=== PATIENT | female | born 1985 | race Caucasian/White ===

== ENCOUNTER 2019-12-04 05:51 | Emergency (ER) | payer MEDICAID ==
[2019-12-04] MEDS ORDERED: Amoxicillin/Clavulanate K 875-125 MG Tab ONE (06:00)
[2019-12-04 06:14] VITALS: BP 116/79; PULSE 91
[2019-12-04] MEDS ORDERED: cefTRIAXone 1 GM Vial IM ONE (06:19)
--- NOTE | 2019-12-04 14:56 | EDM.PDOC ---
ED HPI GENERAL MEDICAL PROBLEM - General Chief Complaint: ENT Problem Stated Complaint: Jaw pain; sinus pain Time Seen by Provider: 12/04/19 06:15 Source of Information: Reports: Patient History Limitations: Reports: No Limitations - History of Present Illness INITIAL COMMENTS - FREE TEXT/NARRATIVE: This is a 34yo F here for complaints of jaw pain. She states her symptoms started from the sinuses and went to the ears and now she has some jaw pain and tenderness with opening her mouth. She denies any fever or chills or other concerns. She does have a lot of drainage and mucopurulent material that comes out. Onset: Gradual Duration: Day(s): Location: Reports: Head, Face Quality: Reports: Ache Severity: Moderate Associated Symptoms: Reports: Headaches Treatments RO[employer]ER: Reports: Heat Therapy, Other (see below) Other Treatments ROOM SERVICE [employer] SERVER: Netti Pot - Related Data Allergies Allergy/AdvReac Type Severity Reaction Status Date / Time No Known Allergies Allergy Verified 01/23/15 18:39 Home Meds: Home Meds LORazepam [Lorazepam] 0.5 mg PO DAILY PRN 12/04/19 [History] Lisdexamfetamine [Vyvanse] 20 mg PO DAILY PRN 12/04/19 [History] Past Medical History - Past Health History Medical/Surgical History: Denies Medical/Surgical History HEENT History: Reports: Sinusitis Psychiatric History: Reports: ADHD - Past Surgical History HEENT Surgical History: Reports: None GI Surgical History: Reports: Cholecystectomy Social & Family History - Family History Family Medical History: Noncontributory - Tobacco Use Smoking Status *Q: Light Tobacco Smoker Years of Tobacco use: 15 Packs/Tins Daily: 0.5 - Caffeine Use Caffeine Use: Reports: None - Alcohol Use Days Per Week of Alcohol Use: 1 Number of Drinks Per Day: 0 Total Drinks Per Week: 0 - Recreational Drug Use Recreational Drug Use: No ED ROS GENERAL - Review of Systems Review Of Systems: Comprehensive ROS is negative, except as noted in HPI. ED EXAM, GENERAL - Physical Exam Exam: See Below Exam Limited By: No Limitations General Appearance: Alert, WD/WN, No Apparent Distress Eye Exam: Bilateral Eye: EOMI, PERRL Ears: Normal External Exam Nose: Normal Inspection Throat/Mouth: Normal Inspection Head: Atraumatic, Normocephalic Neck: Normal Inspection, Supple, Non-Tender Neurological: Alert, Oriented, CN II-XII Intact Psychiatric: Normal Affect, Normal Mood Skin Exam: Warm, Dry, Intact Course - Vital Signs Last Recorded V/S: Last Vital Signs Temp 37.4 C 12/04/19 06:12 Pulse 91 12/04/19 06:12 Resp 18 12/04/19 06:12 BP 116/79 12/04/19 06:12 Pulse Ox 98 12/04/19 06:12 - Orders/Labs/Meds Meds: Medications Discontinued Medications Generic Name Dose Route Start Last Admin Trade Name Chris PRN Reason Stop Dose Admin Ceftriaxone Sodium 1 gm 12/04/19 06:19 12/04/19 06:35 Rocephin IM 12/04/19 06:20 1 gm ONETIME ONE Administration Departure - Departure Time of Disposition: 07:30 Disposition: Home, Self-Care 01 Condition: Good Clinical Impression: Sinusitis Qualifiers: Sinusitis location: maxillary Chronicity: acute Recurrence: not specified as recurrent Qualified Code(s): J01.00 - Acute maxillary sinusitis, unspecified - Discharge Information Instructions: Amoxicillin; Clavulanic Acid tablets, Ceftriaxone injection, Otitis Media, Adult, [id number] Referrals: PCP,None [Primary Care Provider] - Forms: ED Department Discharge Additional Instructions: Take augmentin 875/125 mg twice daily X 10 days. Take a Probiotic to help prevent antibiotic diarrhea (Flogen). Watch for yeast infections. Follow up with provider if symptoms worsen or do not clear in next 10 days. Sepsis Event Note - Evaluation Sepsis Screening Result: No Definite Risk - Focused Exam Vital Signs: Vital Signs Temp Pulse Resp BP Pulse Ox 12/04/19 06:12 37.4 C 91 18 116/79 98 Date Exam was Performed: 12/04/19 Time Exam was Performed: 14:50 - Problem List & Annotations (1) Sinusitis SNOMED Code(s): 00480132 Code(s): J32.9 - CHRONIC SINUSITIS, UNSPECIFIED Status: Acute Qualifiers: Sinusitis location: maxillary Chronicity: acute Recurrence: not specified as recurrent Qualified Code(s): J01.00 - Acute maxillary sinusitis, unspecified - Problem List Review Problem List Initiated/Reviewed/Updated: Yes - Assessment/Plan Plan: Counseled on antibiotics and side effects. Discussed close monitoring and rtc if symptoms persist or worsen. Counseled on supportive care and therapy. Discussed conservative treatment as well. F/u as directed and as needed.
== END 2019-12-04 06:45 | disposition home or self-care (01) ==
LOC: LB.ED 05:51
DX: J01.00 Acute maxillary sinusitis, unspecified (principal); F90.9 Attention-deficit hyperactivity disorder, unspecified type; F17.210 Nicotine dependence, cigarettes, uncomplicated; Z79.899 Other long term (current) drug therapy
CPT/HCPCS: 96372; 99283; A9270; J0696

== ENCOUNTER 2021-03-23 06:41 | Emergency (ER) | payer MEDICAID ==
[2021-03-23 07:15] VITALS: BP 106/76; PULSE 76
[2021-03-23] MEDS: cefTRIAXone 1 GM Vial IM ONE (07:39)
[2021-03-23] MEDS: Ketorolac 60 MG/2 ML SDV IM ONE (07:41)
--- NOTE | 2021-03-23 16:40 | ER ---
HISTORY OF PRESENT ILLNESS: A 35-year-old lady here with complaints of dental pain and abscess involving the right lower jaw. She was seen yesterday in [place] by someone in the clinic and she was put on penicillin V 500 mg b.i.d. she has only taken 2 doses. She states it is not getting any better and feels like it might be slowly getting worse. The patient has not had any injury to this area. She has seen a dentist a couple of weeks ago and was told that she could have it removed toward the end of the month, the 1 molar on the right lower jaw. The patient also noticed a little bit of puffiness just above the left eye this morning. She states that she has never been allergic to penicillin or amoxicillin. She states that her pain is at a 7/10 or 8/10. OBJECTIVE: GENERAL APPEARANCE: The patient is awake and alert. No respiratory distress. VITAL SIGNS: Reviewed. She is afebrile. HEENT: Examining the patient's face reveals obvious swelling of the right lower jaw. There is no redness involving the skin. Oral exam reveals redness involving the 1st molar on the right lower jaw along both sides of the molar. There is no blister or pustule formation. This area is all quite tender to touch. DIAGNOSIS: Dental pain with abscess. TREATMENT PLAN: We will give the patient Rocephin 1 g IM and Toradol 60 mg IM. I will give her a script for Toradol tablets 1 tablet every 6 to 8 hours, giving 15 tablets. She is not to use any NSAIDs while taking this. She can take Tylenol in between doses of Toradol. As far as the swelling above the eye, the patient is to use Benadryl as needed. She feels it is getting better. She woke up with that this morning. If this happens to get worse for any reason, she is to stop taking the penicillin and come back or call back as needed. The patient does not have a rash anywhere and she is agreeable with the treatment plan. She is to utilize a soft diet, and followup should be with her dentist as needed. Followup here is on a p.r.n. basis. CRS/MODL /[id number]
== END 2021-03-23 08:02 | disposition home or self-care (01) ==
LOC: LB.ED 06:41
DX: K04.7 Periapical abscess without sinus (principal)
CPT/HCPCS: 96372; 99282; J0696; J1885

== ENCOUNTER 2021-12-10 20:20 | Emergency (ER) | payer MEDICAID | END 2021-12-10 21:15 | disposition home or self-care (01) | LOC: LB.ED 20:20 | DX: U07.1 COVID-19 (principal) | CPT/HCPCS: 99283; U0002 ==

== ENCOUNTER 2024-02-16 10:50 | Emergency (ER) | payer MEDICAID ==
[2024-02-16 10:59] VITALS: BP 111/81; PULSE 79
[2024-02-16] MEDS ORDERED: Sodium Chloride 0.9% 10 ML Syringe FLUSH PRN (11:06)
[2024-02-16 11:25] LABS: HEMATOCRIT 40.6 % (37.0-47.0); HEMOGLOBIN 13.5 g/dL (11.5-16.5); MEAN CORPUSCULAR HEMOGLOBIN 31.2 pg (27.0-32.0); MEAN CORPUSCULAR HGB CONC 33.3 g/dL (31.0-35.0); MEAN PLATELET VOLUME 9.1 fL (6.0-10.0); RED BLOOD CELL COUNT 4.33 M/uL (3.80-5.80); RED CELL DISTRIBUTION WIDTH 13.5 % (11.0-16.0); WHITE BLOOD CELL COUNT,WBC 7.3 K/uL (4.0-11.0)
[2024-02-16 11:47] LABS: BUN/CREATININE RATIO 13.6 (6-25); CALCIUM 8.9 mg/dL (8.5-10.1); CARBON DIOXIDE,CO2 23.9 mmol/L (21.0-32.0); CREATININE 0.66 mg/dL (0.55-1.02); EST CRCL DRUG DOSING (CG) 112.39 mL/min; MAGNESIUM 1.9 mg/dL (1.8-2.4); PHOSPHORUS 3.2 mg/dL (2.5-4.9); POTASSIUM,K 3.9 mmol/L (3.5-5.1)
[2024-02-16] MEDS ORDERED: Sodium Chloride 0.9% 1,000 ML IV SCH (12:15)
[2024-02-16] MEDS ORDERED: Hydrocortisone/Neomycin/Polymyxin B Otic Soln 10 ML Bottle ONE (12:45)
== END 2024-02-16 12:53 | disposition home or self-care (01) ==
LOC: LB.ED 10:50
DX: H60.331 Swimmer's ear, right ear (principal); H60.91 Unspecified otitis externa, right ear; H53.8 Other visual disturbances; Z79.899 Other long term (current) drug therapy; Z90.49 Acquired absence of other specified parts of digestive tract
CPT/HCPCS: 36415; 70450; 80048; 83735; 84100; 85027; 93005; 99284; A9270-GY

== ENCOUNTER 2025-03-28 12:32 | Emergency (ER) | payer MEDICAID ==
[2025-03-28] MEDS: Albuterol/Ipratropium 3.0-0.5 MG/3 ML Neb Soln NEB ONE (12:55)
[2025-03-28] MEDS: predniSONE 20 MG Tab PO ONE (12:57)
[2025-03-28] MEDS ORDERED: predniSONE 10 MG Tab ONE (13:00)
[2025-03-28 13:02] VITALS: BP 104/72; PULSE 76
== END 2025-03-28 13:14 | disposition home or self-care (01) ==
LOC: LB.ED 12:32
DX: J45.41 Moderate persistent asthma with (acute) exacerbation (principal); Z79.899 Other long term (current) drug therapy; Z90.49 Acquired absence of other specified parts of digestive tract; Z87.891 Personal history of nicotine dependence
CPT/HCPCS: 94640; 99284; A9270-GY; J7512

== ENCOUNTER 2025-04-22 22:25 | Emergency (ER) | payer MEDICAID ==
[2025-04-22] MEDS: Budesonide 0.5 MG/2 ML Neb Susp NEB ONE (23:06)
[2025-04-23 00:04] VITALS: BP 123/98; PULSE 93
== END 2025-04-23 00:08 | disposition home or self-care (01) ==
LOC: LB.ED 22:25
DX: J45.41 Moderate persistent asthma with (acute) exacerbation (principal); J06.9 Acute upper respiratory infection, unspecified; Z88.2 Allergy status to sulfonamides; Z88.0 Allergy status to penicillin; Z88.8 Allergy status to other drugs, medicaments and biological substances; Z79.899 Other long term (current) drug therapy; Z90.49 Acquired absence of other specified parts of digestive tract
CPT/HCPCS: 71046; 87426-QW; 94640; 99285; A9270-GY; J7512

== ENCOUNTER 2025-04-25 15:42 | Emergency (ER) | payer MEDICAID ==
[2025-04-25 16:11] VITALS: BP 111/79
[2025-04-25] MEDS: methylPREDNISolone Sodium Succinate 40 MG/1 ML SDV IM ONE (16:22)
[2025-04-25] MEDS: Budesonide 0.5 MG/2 ML Neb Susp NEB ONE (16:36)
[2025-04-25 16:43] VITALS: PULSE 95
[2025-04-25] MEDS ORDERED: Formoterol/Mometasone 200-5 MCG 8.8 GM Inhaler ONE (17:00)
== END 2025-04-25 17:25 | disposition home or self-care (01) ==
LOC: LB.ED 15:42
DX: J45.51 Severe persistent asthma with (acute) exacerbation (principal); Z79.899 Other long term (current) drug therapy; Z79.51 Long term (current) use of inhaled steroids; Z88.0 Allergy status to penicillin; Z88.2 Allergy status to sulfonamides; Z90.49 Acquired absence of other specified parts of digestive tract; Z87.891 Personal history of nicotine dependence
CPT/HCPCS: 94640; 96372; 99284; A9270-GY; J2919